=== PATIENT | female | born 1980 | race Caucasian/White ===

== ENCOUNTER 2019-08-31 16:41 | Outpatient (REF) | payer SELFPAY ==
[2019-09-04 14:40] LABS: COVID-19 RT-PCR Result Not Detected
== END 2019-08-31 17:01 ==
LOC: NCHCN 16:41
PROVIDERS: PCP Physician Assistant; Visit Provider Physician Assistant
DX: J06.9 Acute upper respiratory infection, unspecified (principal)
CPT/HCPCS: U0003

== ENCOUNTER 2019-12-23 09:00 | Outpatient (REF) | payer MEDICAID, SELFPAY ==
[2019-12-23 15:36] LABS: HCT 39.3 % (36.0-46.0); HGB 12.9 g/dL (12.0-15.5); Mean Corp. HGB Concentration 32.8 g/dL (32.0-36.0); Mean Corpuscular Volume 94.5 fL (80-95); Mean Platelet Volume 11.5 fL (8.0-11.0); Platelet Count 291 x1000/uL (130-400); RBC 4.16 m/cumm (4.00-5.20); RBC Distribution Width 13.2 % (11.7-14.6); White Blood Cell Count 7.49 k/cumm (4.4-10.8)
[2019-12-23 17:23] LABS: Anion Gap 10.5 mmol/L (3-11); BUN 6 mg/dL (7-18); CO2 24.5 mmol/L (21.0-32.0); CREATININE 0.81 mg/dL (0.55-1.02); Calcium 9.6 mg/dL (8.5-10.1); Calculated LDL 45 mg/dL (<100); Chloride 103 mmol/L (98-107); Cholesterol 122 mg/dL (<200); Glucose 86 mg/dL (74-106); HDL Cholesterol 43 mg/dL (40-60); Potassium 4.3 mmol/L (3.5-5.1); Sodium 138 mmol/L (136-145); Triglyceride 174 mg/dL (<150)
== END 2019-12-23 09:20 ==
LOC: NCHCN 09:00
PROVIDERS: PCP Physician Assistant; Visit Provider Physician Assistant
DX: I10 Essential (primary) hypertension (principal)
CPT/HCPCS: 80048; 80061; 85027

== ENCOUNTER 2020-02-07 14:27 | Outpatient (CLI) | payer MEDICAID, SELFPAY ==
--- NOTE | 2020-02-05 08:42 | DI.RAD_ITS ---
EXAM: XR KNEE RT 3V AP,LAT,GEO CLINICAL HISTORY: RT KNEE PAIN,CHRONIC,M25.561 TECHNIQUE: 2D digital imaging was performed. COMPARISON: No exams were available for comparison FINDINGS: There is hardware related to prior ACL repair. There is moderate to severe narrowing of the medial f emoral tibial joint and moderate periarticular spurring. There is mild spurring seen laterally and a t the pelvis patellofemoral joint. There are few bony density seen in the suprapatellar region which could represent small loose bodies versus other soft tissue calcification. 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 Question suprapatellar l oose bodies.
== END 2020-02-07 14:47 ==
PROVIDERS: PCP Physician Assistant; Visit Provider Physician Assistant
DX: M17.11 Unilateral primary osteoarthritis, right knee (principal); M76.9 Unspecified enthesopathy, lower limb, excluding foot
CPT/HCPCS: 73562

== ENCOUNTER 2020-04-28 15:01 | Outpatient (REF) | payer MEDICAID, SELFPAY ==
[2020-05-03 17:44] LABS: Patient Race White; SARS-CoV-2 RNA Undetected (Undetected); SARS-CoV-2 Specimen Source Nasal
== END 2020-04-28 15:21 ==
LOC: NCHCN 15:01
PROVIDERS: PCP Physician Assistant; Visit Provider Nurse Practitioner Family
DX: J06.9 Acute upper respiratory infection, unspecified (principal)
CPT/HCPCS: U0003

== ENCOUNTER 2020-05-05 14:25 | Outpatient (REF) | payer MEDICAID, SELFPAY ==
[2020-05-09 22:16] LABS: Patient Race White; SARS-CoV-2 RNA Undetected (Undetected); SARS-CoV-2 Specimen Source Nasal
== END 2020-05-05 14:45 ==
LOC: NCHCN 14:25
PROVIDERS: PCP Physician Assistant; Visit Provider Physician Assistant Medical
DX: J06.9 Acute upper respiratory infection, unspecified (principal)
CPT/HCPCS: U0003

== ENCOUNTER 2020-08-10 09:10 | Outpatient (REF) | payer MEDICAID, SELFPAY ==
[2020-08-10 16:05] LABS: HCT 35.8 % (36.0-46.0); MCH 31.8 pg (27.0-33.0); MCHC 33.5 % (32.0-36.0); MPV 12.2 fL (8.0-11.0); Platelet Count 306 10^3/uL (130-400); RBC 3.77 10^6/uL (3.93-5.22); RDW 12.8 % (11.7-14.6); RDW-SD 44.8 fL; WBC 5.63 10^3/uL (4.4-10.8)
[2020-08-10 16:11] LABS: Anion Gap 9.1 mmol/L (3-11); BUN 8 mg/dL (7-18); CO2 24.9 mmol/L (21.0-32.0); CREATININE 0.8 mg/dL (0.55-1.02); Calcium 8.8 mg/dL (8.5-10.1); Chloride 105 mmol/L (98-107); Glucose 126 mg/dL (74-106); Potassium 3.9 mmol/L (3.5-5.1); Sodium 139 mmol/L (136-145)
[2020-08-11 13:17] LABS: COVID-19 RT-PCR UVMMC Result Negative (Negative)
== END 2020-08-10 09:11 | disposition home or self-care (01) ==
LOC: NCHCN 09:10
PROVIDERS: PCP Physician Assistant; Visit Provider Physician Assistant
DX: Z20.822 Contact with and (suspected) exposure to COVID-19 (principal); R05 Cough; Z01.818 Encounter for other preprocedural examination
CPT/HCPCS: 80048; 85027; U0003

== ENCOUNTER 2020-10-25 02:29 | Outpatient (CLI) | payer MEDICAID, SELFPAY ==
--- NOTE | 2020-10-25 | DI.MAMMO_ITS ---
Exam(s) MAMMO SCREENING EXAM: MAMMO SCREENING CLINICAL HISTORY: SCREENING, Z12.31. TECHNIQUE: Bilateral full field digital CC and MLO mammographic images were obtained with 3D tomosyn thesis and utilizing computer aided detection (CAD). COMPARISON: Prior outside mammogram performed January 2018 FINDINGS: The fibroglandular tissue pattern is moderately dense. In the right breast there is a lobulated noncalcified nodular density seen laterally the, similar to the previous study 2018. Perhaps minimally larger. On the present study this measures approximately 11 by 6 millimeters. Located 7 cm in from the nipple. In the left breast there is a nodular density noted lateral of center approximately 11 cm in from the nipple. This measures 6.5 by 4.5 cm. There is subtle suggestion of a 2nd possible nodular density more centrally located in the right [address], approximately 5-6 cm in from the nipple. IMPRESSION: Bilateral nodular densities. Spot compression views and bilateral breast ultrasound recommended BI-RADS Category 0 - Assessment Incomplete: Need additional imaging evaluation Breast Density - Category C - Heterogeneously dense Breast density Category C or D implies that the patient has dense breast tissue. Dense breast tissue can make it harder to find cancer on a mammogram. Dense breast tissue is also associated with an incr eased risk of breast cancer. This information about the result of the mammogram report was provided to the patient to raise their awareness. Use this report when you speak with the patient about their risks for breast cancer, which includes their family history. At that time, you may recommend additional screening tests (Ultrasoun d or MRI) as these tests may add significant information. A negative radiographic report should not delay biopsy if a dominant or clinically suspicious mass is present. Up to ten percent of cancers are not identified on mammography. A negative report may reinforce clinical impression. Adenosis and dense breasts may obscure an underlying neoplasm. False positive reports average 6 to 10%. Patient will receive a letter notifying them of these results.
== END 2020-10-25 02:49 ==
PROVIDERS: PCP Physician Assistant; Visit Provider Physician Assistant
DX: Z12.31 Encounter for screening mammogram for malignant neoplasm of breast (principal); R92.8 Other abnormal and inconclusive findings on diagnostic imaging of breast
CPT/HCPCS: 77063; 77067

== ENCOUNTER 2020-11-16 02:30 | Outpatient (CLI) | payer MEDICAID, SELFPAY ==
--- NOTE | 2020-11-16 | DI.US_ITS ---
Exam(s) US BREAST RT LIMITED US BREAST LT LIMITED MG MAMMO SCREEN CALL BACK BI EXAM: MG MAMMO SCREEN CALL BACK BI and bilateral ultrasound limited CLINICAL HISTORY: F/U MAMMO, RT BREAST NODULAR DENSITY, LT BREAST NODULAR DENSITY. TECHNIQUE: Craniocaudal and mediolateral oblique Full Field Digital Mammography views of the bilater al breast with Computer Aided Diagnosis followed by Tomosynthesis and bilateral breast ultrasound. COMPARISON: Priors available for comparison. FINDINGS: Mammography/Tomosynthesis: Masses/Architectural Distortion: There is again seen a well-circumscribed, 4 mm nodule in the posteri or outer left breast on the craniocaudad view. This area was not included on the prior mammographic examination. The area of asymmetry in the central right breast does not persist on the additional vi ew. Microcalcifictions: No suspicious pleomorphic-type are seen. Skin Thickening/Nipple Retraction: None. Bilateral limited breast US: Echotexture: Normal appearance of the glandular tissue. Shadowing: No suspicious foci. Cyst: None. Solid lesions: None seen. Ductal dilation: None. IMPRESSION: 1. No evidence of malignancy is noted. 2. Re-evaluation of both breasts in 6 months is recommended with bilateral mammograms. 3. The findings were discussed with the patient on the date of the examination. BI-RADS Category 3 - 6 month - Probably Benign Finding: Recommend follow-up imaging in 6 months Breast Density - Category C - Heterogeneously dense Breast density Category C or D implies that the patient has dense breast tissue. Dense breast tissue can make it harder to find cancer on a mammogram. Dense breast tissue is also associated with an incr eased risk of breast cancer. This information about the result of the mammogram report was provided to the patient to raise their awareness. Use this report when you speak with the patient about their risks for breast cancer, which includes their family history. At that time, you may recommend additional screening tests (Ultrasoun d or MRI) as these tests may add significant information. A negative radiographic report should not delay biopsy if a dominant or clinically suspicious mass is present. Up to ten percent of cancers are not identified on mammography. A negative report may reinforce clinical impression. Adenosis and dense breasts may obscure an underlying neoplasm. False positive reports average 6 to 10%. Patient will receive a letter notifying them of these results.
== END 2020-11-16 02:50 ==
PROVIDERS: PCP Physician Assistant; Visit Provider Physician Assistant
DX: Z12.31 Encounter for screening mammogram for malignant neoplasm of breast (principal); R92.8 Other abnormal and inconclusive findings on diagnostic imaging of breast; N60.82 Other benign mammary dysplasias of left breast; N64.59 Other signs and symptoms in breast
CPT/HCPCS: 76642; 77063; 77067

== ENCOUNTER 2021-03-14 10:08 | Outpatient (REF) | payer OTHER, SELFPAY ==
--- NOTE | 2021-03-14 09:00 | PAPFT_PTH ---
PATIENT: Ginna Rodriguez LOC: [facility] U#:[id number] AGE/SX: 40/F ROOM: RE03/14/[address]: Pranay Fam : 1980 BED: DIS: 03/14/2021 SPEC #: [id number] RECD: 03/14/21 18:37 STATUS: BERTO REQ #: [id number] FELIPE: 03/14/21 09:[address]: Pranay Fam DEPT: [facility] Cytology RECD BY: Machelle Randle Tissues: 1 - CX/ENDOCX FOR PAP SMEARS Procedures: PAP THIN PREP/UVM Screening HPV DNA PROBE Comments: [id number]
== END 2021-03-14 10:09 | disposition home or self-care (01) ==
LOC: NCHCN 10:08
PROVIDERS: PCP Physician Assistant; Visit Provider Physician Assistant
DX: Z12.4 Encounter for screening for malignant neoplasm of cervix (principal); Z11.51 Encounter for screening for human papillomavirus (HPV)
CPT/HCPCS: 88142; 87624

== ENCOUNTER → 2021-09-21 01:17 | Outpatient (CLI) | payer OTHER, SELFPAY ==
--- NOTE | 2021-09-21 09:30 | DI.MAMMO_ITS ---
Exam(s) MAMMO DIAGNOSTIC BI EXAM: MAMMO DIAGNOSTIC BI CLINICAL HISTORY: H/O ABNL MAMMO, Z87.898 TECHNIQUE: Bilateral full field digital CC and MLO mammographic images were obtained with 3D tomosyn thesis and utilizing computer aided detection (CAD). COMPARISON: Available for comparison. FINDINGS: Masses/Architectural Distortion: The nodule in the outer left breast on the CC view is stable. Microcalcifications: No suspicious pleomorphic-type are seen. Skin Thickening/Nipple Retraction: None. IMPRESSION: 1. No significant interval change with no specific features of malignancy noted. 2. Unless there is more urgent need, screening mammography is recommended, as per [employer] [employer] guidelines. The patient should return in 6 months for screening mammography. 3. Findings were discussed with the patient on the date of the examination. BI-RADS Category 1 - Negative Breast Density - Category C - Heterogeneously dense Breast density category C or D implies that the patient has dense breast tissue. Dense breast tissue is very common and is not abnormal but dense breast tissue can make it harder to find cancer on a ma mmogram. Also, dense breast tissue may increase their breast cancer risk. This information about the result of the mammogram report was provided to the patient to raise their awareness. Use this report when you speak with the patient about their risks for breast cancer, which includes their family hist ory. At that time, you may recommend for more screening tests (Ultrasound or MRI) as they might be us eful based on their risk. A negative radiographic report should not delay biopsy if a dominant or clinically suspicious mass is present. Up to ten percent of cancers are not identified on mammography. A negative report may reinforce clinical impression. Adenosis and dense breasts may obscure an underlying neoplasm. False positive reports average 6 to 10%. Patient will receive a letter notifying them of these results.
== END ==
PROVIDERS: PCP Physician Assistant; Visit Provider Physician Assistant
DX: R92.8 Other abnormal and inconclusive findings on diagnostic imaging of breast (principal); N60.82 Other benign mammary dysplasias of left breast
CPT/HCPCS: 77062; 77066; G0279

== ENCOUNTER 2022-09-20 12:45 | Outpatient (REF) | payer OTHER, MEDICAID, SELFPAY ==
[2022-09-21 13:29] LABS: Hemoglobin A1C 5.7 % (<5.7)
[2022-09-21 13:53] LABS: Vitamin D 25 Total 54.4 ng/mL (30-100)
[2022-09-21 13:57] LABS: ALT 35 U/L (14-59); AST 19 U/L (15-37); Albumin 3.7 g/dL (3.4-5.0); Alkaline Phosphatase 110 U/L (46-116); Anion Gap 6.6 mmol/L (3-11); BUN 7 mg/dL (7-18); Bilirubin, Total 0.3 mg/dL (0.2-1.0); CO2 29.4 mmol/L (21.0-32.0); Calcium 10.1 mg/dL (8.5-10.1); Chloride 104 mmol/L (98-107); Estimated GFR 71.69 (mL/min/1.73m2); Glucose 82 mg/dL (74-106); Potassium 4.4 mmol/L (3.5-5.1); Sodium 140 mmol/L (136-145); TSH (W/Ref FT4) 0.87 uIU/mL (0.36-3.74); Total Protein 7.7 g/dL (6.4-8.2); Vitamin B12 591 pg/mL (193-986)
== END 2022-09-20 12:46 | disposition home or self-care (01) ==
LOC: NCHCN 12:45
PROVIDERS: PCP Physician Assistant; Visit Provider Registered Nurse
DX: F32.A Depression, unspecified (principal)
CPT/HCPCS: 80053; 82306; 82607; 83036; 84443; 85025

== ENCOUNTER → 2023-02-22 01:13 | Outpatient (CLI) | payer OTHER, SELFPAY ==
--- NOTE | 2023-02-22 15:19 | DI.MAMMO_ITS ---
Exam(s) MAMMO SCREENING EXAM: MAMMO SCREENING CLINICAL HISTORY: SCREENING MAMMO Z12.31 TECHNIQUE: Bilateral full field digital CC and MLO mammographic images were obtained with 3D tomosyn thesis and utilizing computer aided detection (CAD). COMPARISON: Available for comparison. FINDINGS: Masses/Architectural Distortion: None seen. Stable area of asymmetry in the upper left breast on the MLO view compared to prior examination. No new areas of breast asymmetry or nodularity are seen. Th e nodule in the posterior medial right breast is unchanged as is a nodule in the outer left breast. Microcalcifications: No suspicious pleomorphic-type are seen. Skin Thickening/Nipple Retraction: None. IMPRESSION: 1. No significant interval change with no specific features of malignancy noted. 2. Unless there is more urgent need, screening mammography is recommended, as per [employer] guidelines. BI-RADS Category 2 - Benign Findings Breast Density - Category C - Heterogeneously dense Breast density category C or D implies that the patient has dense breast tissue. Dense breast tissue is very common and is not abnormal but dense breast tissue can make it harder to find cancer on a ma mmogram. Also, dense breast tissue may increase their breast cancer risk. This information about the result of the mammogram report was provided to the patient to raise their awareness. Use this report when you speak with the patient about their risks for breast cancer, which includes their family hist ory. At that time, you may recommend for more screening tests (Ultrasound or MRI) as they might be us eful based on their risk. A negative radiographic report should not delay biopsy if a dominant or clinically suspicious mass is present. Up to ten percent of cancers are not identified on mammography. A negative report may reinforce clinical impression. Adenosis and dense breasts may obscure an underlying neoplasm. False positive reports average 6 to 10%. Patient will receive a letter notifying them of these results.
== END ==
PROVIDERS: PCP Physician Assistant; Visit Provider Physician Assistant
DX: Z12.31 Encounter for screening mammogram for malignant neoplasm of breast (principal)
CPT/HCPCS: 77063; 77067

== ENCOUNTER 2023-05-15 11:10 | Outpatient (REF) | payer OTHER, SELFPAY ==
[2023-05-15 15:39] LABS: HCT 36.5 % (36.0-46.0); HGB 12.6 g/dL (11.2-15.7); MCH 32.9 pg (27.0-33.0); MCHC 34.5 % (32.0-36.0); MCV 95 fL (80-95); MPV 11.8 fL (8.0-11.0); Platelet Count 297 10^3/uL (130-400); RBC 3.83 10^6/uL (3.93-5.22); RDW 13.7 % (11.7-14.6); RDW-SD 47.5 fL; WBC 6.34 10^3/uL (4.4-10.8)
[2023-05-15 16:02] LABS: Anion Gap 10.4 mmol/L (3-11); BUN 4 mg/dL (7-18); CO2 25.6 mmol/L (21.0-32.0); CREATININE 0.7 mg/dL (0.55-1.02); Calcium 9.4 mg/dL (8.5-10.1); Chloride 102 mmol/L (98-107); FREE T4 0.98 ng/dL (0.76-1.46); Glucose 98 mg/dL (74-106); Potassium 3.8 mmol/L (3.5-5.1); Sodium 138 mmol/L (136-145); TSH 1.96 uIU/mL (0.36-3.74)
== END 2023-05-15 11:11 | disposition home or self-care (01) ==
LOC: NCHCN 11:10
PROVIDERS: PCP Physician Assistant; Visit Provider Physician Assistant
DX: E55.9 Vitamin D deficiency, unspecified (principal); R53.83 Other fatigue; I10 Essential (primary) hypertension
CPT/HCPCS: 80048; 82306; 85027; 84439; 84443

== ENCOUNTER 2023-09-02 18:32 | Outpatient (REF) | payer OTHER, SELFPAY ==
[2023-09-02 18:36] LABS: HCT 36.6 % (36.0-46.0); HGB 12.2 g/dL (11.2-15.7); MCH 32.6 pg (27.0-33.0); MCHC 33.3 % (32.0-36.0); MCV 98 fL (80-95); MPV 11.7 fL (8.0-11.0); Platelet Count 327 10^3/uL (130-400); RBC 3.74 10^6/uL (3.93-5.22); RDW 13.1 % (11.7-14.6); RDW-SD 46.3 fL; WBC 5.89 10^3/uL (4.4-10.8)
[2023-09-02 19:27] LABS: ALT 65 U/L (14-59); AST 38 U/L (15-37); Albumin 3.7 g/dL (3.4-5.0); Alkaline Phosphatase 93 U/L (46-116); Anion Gap 11.1 mmol/L (3-11); BUN 11 mg/dL (7-18); Bilirubin, Total 0.3 mg/dL (0.2-1.0); CO2 24.9 mmol/L (21.0-32.0); CREATININE 0.8 mg/dL (0.55-1.02); Calcium 9.4 mg/dL (8.5-10.1); Chloride 102 mmol/L (98-107); Estimated GFR 93.12 (mL/min/1.73m2); Glucose 151 mg/dL (74-106); Potassium 3.8 mmol/L (3.5-5.1); Sodium 138 mmol/L (136-145); TSH 0.66 uIU/Ml (0.36-3.74); Total Protein 7.2 g/dL (6.4-8.2)
== END 2023-09-02 18:33 | disposition home or self-care (01) ==
LOC: NCHCN 18:32
PROVIDERS: PCP Physician Assistant; Visit Provider Physician Assistant
DX: Z01.818 Encounter for other preprocedural examination (principal)
CPT/HCPCS: 80053; 85027; 84443

== ENCOUNTER 2023-12-02 11:30 | Emergency (ER) | payer MEDICAID, SELFPAY ==
[2023-12-02 11:34] VITALS: BP 150/97; PULSE 68; RESP 18; O2SAT 99
--- NOTE | 2023-12-02 11:42 | ED.GENADUL_ITS ---
Discharge Plan Disposition Patient Disposition: Home Condition: Stable Discharge Details Clinical Impression: Sprain of right wrist Primary Care Provider: Pranay Fam ED Provider: Sixto Mary Home Meds and New Rx's Prescriptions: Continued amlodipine 5 mg tablet 5 mg PO DAILY Patient Comments: TAKE 1 TABLET BY MOUTH ONCE DAILY bisoprolol fumarate 10 mg tablet 10 mg PO DAILY Patient Comments: TAKE 1 TABLET BY MOUTH ONCE DAILY albuterol sulfate [Ventolin HFA] 90 mcg/actuation HFA aerosol inhaler 2 inh INHALATION PRN PRN (Reason: cough variant asthma) Patient Comments: as needed hydrochlorothiazide 12.5 mg tablet 12.5 mg PO DAILY Trintellix 20 mg tablet 20 mg PO DAILY Patient Comments: TAKE 1 TABLET BY MOUTH ONCE DAILY IN THE MORNING FOR DEPRESSION FOR 30 DAYS Vraylar 1.5 mg capsule 1.5 mg PO QHS Patient Comments: TAKE 1 CAPSULE BY MOUTH ONCE DAILY AT BEDTIME FOR 30 DAYS FOR MOOD Discharge Instructions Instructions: Wrist Sprain ED Additional Instructions: You were seen in the emergency department for your sprain of your right wrist. There is no fracture seen on any of your x-rays. Please use the provided wrist brace to immobilize for symptomatic relief. Please rest, ice, compress and elevate the wrist often over the next few days. Please use therapeutic dosing of Tylenol (acetamenophen) & Advil (ibuprofen) in an alternating fashion as follows: Take 1000mg of Tylenol every 6 hours without missing doses- that is 4 times per day. [place] in between the Tylenol dosings, take 400-600mg of Advil also on a 6 hour schedule, that is also 4 times per day. The daily maximum dosing of Tylenol is 4000mg, and the daily maximum dosing of Advil is 2400mg. This is safe to do for weeks. Please note that some common cold medications & prescription pain medications may contain acetamenophen and you need to read OTC drug labels and factor that in to maximum daily dosings. Please return to the emergency department for signs of neurovascular compromise, please follow-up with orthopedics for persistent pain lasting longer than 2 weeks. Referrals: [facility] [Provider Group] Pranay Fam [Primary Care Provider] - Discharge Data Discharge Date/Time-TO BE ENTERED AT DEPARTURE: 12/02/23 12:33 HPI General Date/Time Provider Initiated Documentation: 12/02/23 11:39 . HPI Narrative: 43 year-old female presents to ED today by POV/ambulating with a chief complaint of fall on a dock yesterday. Quality described as R hand and wrist pain- R-hand dominant, no radiation to numbness, does endorse reduced ROM, denies focal bony/sharp pain, denies other proximal forearm injury, denies skin changes/deformity/gross swelling. Severity is described as moderate. Palliating factors include nothing specific attempted. Provoking factors include nothing specific. Patient not anticoagulated. Related Data Home Medications Medication Instructions Recorded Confirmed albuterol sulfate 90 mcg/actuation 2 inh inhalation PRN PRN cough 12/02/23 12/02/23 aerosol inhaler (Ventolin HFA) variant asthma amlodipine 5 mg tablet 5 mg PO DAILY 12/02/23 12/02/23 bisoprolol fumarate 10 mg tablet 10 mg PO DAILY 12/02/23 12/02/23 cariprazine 1.5 mg capsule 1.5 mg PO QHS 12/02/23 12/02/23 (Vraylar) hydrochlorothiazide 12.5 mg tablet 12.5 mg PO DAILY Hypertension 12/02/23 12/02/23 vortioxetine 20 mg tablet 20 mg PO DAILY 12/02/23 12/02/23 (Trintellix) Allergies Allergy/AdvReac Type Severity Reaction Status Date / Time adhesive Allergy Mild Skin Rash Verified 12/02/23 11:51 nitrofurantoin AdvReac Severe Other (See Verified 12/02/23 11:51 [From Macrobid] Comment) meperidine [From Demerol] AdvReac Unknown Other (See Verified 12/02/23 11:51 Comment) Sulfa Drugs AdvReac Intermediate Other (See Uncoded 12/02/23 11:51 Comment) General Stated Complaint: Orthopedic BRENDAN: 4 Review of Systems All systems reviewed & are unremarkable except as noted in HPI and below Exam Narrative Exam Narrative: GENERAL APPEARANCE: Well-nourished, non-toxic, awake and alert, atraumatic, no acute distress. SKIN: Warm, pink, dry, intact, without rashes/lesions/ulcerations. HEAD: Normocephalic, atraumatic, normal hair distribution for gender/age. EYES: Pupils PERRLA, EOMs intact without nystagmus, normal conjunctiva, no exudates on lids/lashes. ENT: Nares patent, no circumoral cyanosis, no facial swelling NECK: Supple, trachea midline, painless cervical ROM. LUNGS/CHEST: Non-labored respirations, normal A/P diameter, symmetrical expansion, no chest wall deformity HEART (CV/PV): Regular rate, no peripheral edema, no JVD. ABDOMEN: Soft, non-distended, no guarding. MSK: Normal ROM, no swelling/deformity to bilateral UEs or LEs, moving all extremities without weakness, no cyanosis, spine midline without tenderness, normal curvature. R HAND: No focal crepitus, diffuse tenderness to the wrist and carpal bones, no ecchymosis, no gross swelling, no deformity, right radial pulse 2+, sensation intact, brisk capillary refill, negative anatomical snuff box tenderness. NEURO: Mental Status AAOx4 - alert to person, place, time, events No facial droop, no forehead involvement. Motor: No focal weakness - strength 5/5 in bilateral UEs and LEs, proximal and distal, symmetric. Sensory: sensation intact to light touch globally. Gait normal: patient ambulated without ataxia into ED room. PSYCH: euthymic, cooperative, pleasant, appropriate speech Course Vital Signs Vital signs: Vital Signs Pulse 68 12/02/23 11:34 Respiratory Rate 18 12/02/23 11:34 Blood Pressure 150/97 H 12/02/23 11:34 Pulse Oximetry 99 12/02/23 11:34 Pulse 68 12/02/23 11:34 Respiratory Rate 18 12/02/23 11:34 Respiratory Effort Normal, Non-Labored 12/02/23 11:38 Blood Pressure 150/97 H 12/02/23 11:34 Blood Pressure Position Sitting 12/02/23 11:34 Pulse Oximetry 99 12/02/23 11:34 Oxygen Delivery Method Room Air 12/02/23 11:34 Oxygen Flow Rate 0 12/02/23 11:34 Medical Decision Making This dictation utilizes [id number] dictation software and may contain unedite d grammatical errors. 43 year-old female presents to ED today by POV/ambulating with a chief complaint of fall on a dock yesterday. Quality described as R hand and wrist pain- R-hand dominant, no radiation to numbness, does endorse reduced ROM, denies focal bony/sharp pain, denies other proximal forearm injury, denies skin changes/deformity/gross swelling. Severity is described as moderate. Palliating factors include nothing specific attempted. Provoking factors include nothing specific. Patients' medical history: noncontributory. Family and social history: noncontributory. Pertinent exam findings / vital signs include R HAND: No focal crepitus, diffuse tenderness to the wrist and carpal bones, no ecchymosis, no gross swelling, no deformity, right radial pulse 2+, sensation intact, brisk capillary refill, negative anatomical snuff box tenderness. Differential / pathologies of concern include fracture, sprain/strain. Diagnostic studies of: -XR R Hand, XR R Wrist - no acute fracture seen. Interventions of: -wrist brace. ED Course/Assessment/Plan: 43-year-old female presents with low sprain of the right wrist from falling on a dock yesterday. There is no acute deformity or gross swelling or bruising. X- rays are unremarkable. She is neurovascularly intact I did provide a wrist brace and counseled on RICE therapy and therapeutic dosing of Tylenol and ibuprofen. I recommend she return to the ER for signs of neurovascular compromise like complete numbness, redness or change in the swelling despite treatment. Follow-up with orthopedics if pain persists longer than 2 weeks. Findings not consistent with fracture, neurovascular compromise. Disposition of Sprain of Right Wrist. Patient verbalized understanding of the plan and return to ED criteria and engaged in shared decision making. Medical Records Medical records reviewed: Yes I reviewed the patient's medical records. Imaging Data Radiologic Study: Attestation: I personally reviewed and interpreted this imaging study as follows: Imaging: X-Ray Radiologist's impression: EXAM: XR WRIST RT COMPL NAVICULAR CLINICAL HISTORY: R wrist and hand pain. TECHNIQUE: 2D digital imaging was performed. Four views of the wrist. Three views of the hand.. COMPARISON: CR XR HAND RT COMPLETE from 12/02/2023 FINDINGS: BONES: No acute fracture is present. No bony destructive lesion is seen. JOINTS: The carpal bones are normally aligned. SOFT TISSUE: Normal. IMPRESSION: Unremarkable radiographs of the right wrist and hand. Quality:SDOH Health Related Social Needs: No Data to Display PFSH All Active Problems (Updated 12/02/23 @ 12:12 by WARREN Story) Sprain of right wrist (Acute) Social History Smoking/Tobacco Use Status: Never Smoking risk assessment performed?: Yes Alcohol Intake: never Drug use: Never Substance use type: does not use Do you feel safe at home: Yes Do you feel safe in your relationship?: Yes
--- NOTE | 2023-12-02 12:06 | DI.RAD_ITS ---
Exam(s) XR HAND RT COMPLETE XR WRIST RT COMPL NAVICULAR EXAM: XR WRIST RT COMPL NAVICULAR CLINICAL HISTORY: R wrist and hand pain. TECHNIQUE: 2D digital imaging was performed. Four views of the wrist. Three views of the hand.. COMPARISON: CR XR HAND RT COMPLETE from 12/02/2023 FINDINGS: BONES: No acute fracture is present. No bony destructive lesion is seen. JOINTS: The carpal bones are normally aligned. SOFT TISSUE: Normal. IMPRESSION: Unremarkable radiographs of the right wrist and hand. DATA REPOSITORY: RADIATION DOSE DELIVERED:
== END 2023-12-02 12:33 | disposition home or self-care (01) ==
LOC: ER 12:36
PROVIDERS: Emergency Provider Physician Assistant; PCP Physician Assistant
DX: S63.501A Unspecified sprain of right wrist, initial encounter (principal); W18.39XA Other fall on same level, initial encounter; Y93.01 Activity, walking, marching and hiking; Y92.89 Other specified places as the place of occurrence of the external cause
CPT/HCPCS: 99283; 73110; 73130

== ENCOUNTER → 2024-01-23 01:26 | Outpatient (CLI) | payer MEDICAID, SELFPAY ==
--- NOTE | 2024-01-23 10:16 | DI.US_ITS ---
Exam(s) US PELVIS TRANSVAGINAL EXAM: US PELVIS TRANSVAGINAL CLINICAL HISTORY: Check endometrial stripe, heavy menstrual bleeding, N92.0 TECHNIQUE: Transabdominal and transvaginal imaging was performed using standard protocol. COMPARISON: No exams were available for comparison FINDINGS: The bladder is unremarkable. UTERUS: Anteverted. 8.8 x 5.0 x 6.3 cm Endometrium: 12 mm. No focal abnormality visible. Myometrium: 2.2 centimeter posterior myometrial fibroid. Question additional 3.4 fibroid near the fu ndus of the this is not optimally visualized in both planes. Cervix: Nabothian cysts. OVARIES: Right: Cyst or mass: Small follicles. Left: Cyst or mass: Dominant follicle measuring 2.1 cm. DOPPLER: Color: Symmetric and uniform flow to both ovaries. No hyperemia. CUL-DE-SAC: Free fluid: Trace amount of fluid in the cul-de-sac. IMPRESSION: 2.2 centimeter posterior myometrial fibroid. Endometrium measures 12 millimeters without focal abnor mality. Unremarkable bilateral ovaries. DATA REPOSITORY:
== END ==
PROVIDERS: PCP Physician Assistant; Visit Provider Obstetrics & Gynecology
DX: N92.0 Excessive and frequent menstruation with regular cycle (principal); D25.9 Leiomyoma of uterus, unspecified
CPT/HCPCS: 76830; 76856

== ENCOUNTER 2024-02-10 16:46 | Outpatient (CLI) | payer MEDICAID, SELFPAY ==
[2024-02-10 12:41] LABS: Abs Immature Grans 0.02 10^3/uL (0.0-0.06); Absolute Basophil Count 0.01 10^3/uL (0.0-0.2); Absolute Lymphocyte Count 2.43 10^3/uL (1.2-3.4); Absolute Monocyte Count 0.37 10^3/uL (0.1-0.8); Absolute Neutrophil Count 2.79 10^3/uL (1.2-6.7); Basophils % 0.2 %; Eosinophils % 3.4 %; HCT 38.2 % (36.0-46.0); Immature Grans % 0.3 %; Lymphocytes % 41.8 %; MCH 32.2 pg (27.0-33.0); MCV 95 fL (80-95); MPV 10.5 fL (8.0-11.0); Monocytes % 6.4 %; Neutrophils % 47.9 %; Platelet Count 310 10^3/uL (130-400); RBC 4.04 10^6/uL (3.93-5.22); RDW 12.4 % (11.7-14.6); RDW-SD 43.7 fL; WBC 5.82 10^3/uL (4.4-10.8)
== END 2024-02-10 16:47 | disposition home or self-care (01) ==
LOC: LBO 16:46
PROVIDERS: PCP Physician Assistant; Visit Provider Obstetrics & Gynecology
DX: Z01.818 Encounter for other preprocedural examination (principal)
CPT/HCPCS: 36415; 86850; 86900; 86901; 85025

== ENCOUNTER 2024-02-12 06:15 | Day surgery (SDC) | payer MEDICAID, SELFPAY ==
[2024-02-12] VITALS (11 sets, daily range): BP systolic 105–122; BP diastolic 71–84; PULSE 60–81; RESP 15–19; TEMP 36–36.6; O2SAT 97–100; BMI 31.5
[2024-02-12] MEDS: Lactated Ringers 1,000 ML 125 ML IV (06:51)
--- NOTE | 2024-02-12 07:17 | W.ANESPRE ---
General Info Date of Service Date Performed: 02/12/24 Height: 5 ft 7 in Weight: 91.399 kg Body Mass Index (BMI): 31.5 Surgical Procedure: Operation Date: 02/12/24 07:40 Proposed Procedure Side Surgeon p Dilation & Curettage with Hysteroscopy Nikki Warner DO Meds Allergies and Home Medications Allergies Allergy/AdvReac Type Severity Reaction Status Date / Time adhesive Allergy Mild Skin Rash Verified 02/12/24 06:22 nitrofurantoin (From AdvReac Severe Other (See Verified 02/12/24 06:22 Macrobid) Comment) meperidine (From Demerol) AdvReac Unknown Other (See Verified 02/12/24 06:22 Comment) Sulfa Drugs AdvReac Intermediate Other (See Uncoded 02/12/24 06:22 Comment) Home Medication ?Medication ?Instructions ?Recorded albuterol sulfate 90 mcg/actuation 2 inh inhalation PRN PRN cough 12/02/23 aerosol inhaler (Ventolin HFA) variant asthma amlodipine 5 mg tablet 5 mg PO DAILY 12/02/23 bisoprolol fumarate 10 mg tablet 10 mg PO DAILY 12/02/23 cariprazine 1.5 mg capsule 1.5 mg PO DAILY 12/02/23 (Vraylar) hydrochlorothiazide 12.5 mg tablet 12.5 mg PO DAILY Hypertension 12/02/23 vortioxetine 20 mg tablet 20 mg PO DAILY 12/02/23 (Trintellix) clonazepam 0.125 mg disintegrating 0.125 mg PO DAILY PRN 01/16/24 tablet diphenhydramine HCl 25 mg tablet 25 mg PO TID PRN 01/16/24 (Benadryl Allergy) epinephrine 0.3 mg/0.3 mL 0.3 mg IM ONCE 01/16/24 injection, auto-injector propranolol 20 mg tablet 20 mg PO BID PRN 01/16/24 lisdexamfetamine 20 mg capsule 40 mg PO QAM 01/23/24 (Vyvanse) cetirizine 10 mg tablet (Zyrtec) 10 mg DAILY allergies 02/12/24 Current Visit Medications: Current Medications Generic Name Dose Route Start Last Admin Trade Name Freq PRN Reason Stop Dose Admin Ringer's Solution 1,000 mls @ 125 mls/hr 02/12/24 06:00 02/12/24 06:51 IV 02/12/24 23:59 125 mls/hr INFUSION CAROLYN Administration IV Miscellaneous Supplies 1 each 02/12/24 06:00 Iv Access IV 02/12/24 23:59 DIRECTED CAROLYN Sodium Chloride 0 ml 02/12/24 06:00 Normal Saline Flush 10 Ml Syr IV 02/12/24 23:59 PRN PRN Sodium Chloride 0 ml 02/12/24 06:00 Normal Saline 10 Ml Vial IJ 02/12/24 23:59 DIRECTED PRN Sterile Water 0 ml 02/12/24 06:00 Water,Injection,Sterile 10 Ml Vial IJ 02/12/24 23:59 DIRECTED PRN PFSH Active Problems Active Problems: Problem Status Onset Code Thickened endometrium Acute R93.89 Heavy menstrual bleeding Acute N92.0 Medical History Medical History Encounter for Essure implantation ACL (anterior cruciate ligament) tear Migraine Inflammatory bowel disease High blood pressure Depression with anxiety Surgical History Surgical History Status post right knee replacement H/O wisdom tooth extraction Tobacco Smoking/Tobacco Use Status: Never Passive smoking exposure: Yes Second hand exposure: Yes Alcohol Alcohol Intake: never Substance Use Substance use: Never Substance use type: does not use Prental History History 1 Para 0 Hx # Term Pregnancies Multiple births Hx # Pregnancies Ectopic pregnancies AB induced Hx Number of Living Children AB spontaneous 1 Vital Signs and Lab Results Vital Signs Most Recent Vital Signs in EMR: Most Recent Vital Signs Temp Pulse Resp BP Pulse Ox 36.1 C L 67 17 107/71 97 02/12/24 06:30 02/12/24 06:30 02/12/24 06:30 02/12/24 06:30 02/12/24 06:30 Lab Results Blood Type / Crossmatch: Antibody Screen NEGATIVE 02/10/24 Complete Blood Count: White Blood Count 5.82 10^3/uL (4.4-10.8) 02/10/24 12:27 Red Blood Count 4.04 10^6/uL (3.93-5.22) 02/10/24 12:27 Hemoglobin 13.0 g/dL (11.2-15.7) 02/10/24 12:27 Hematocrit 38.2 % (36.0-46.0) 02/10/24 12:27 Platelet Count 310 10^3/uL (130-400) 02/10/24 12:27 Complete Metabolic Panel: No Data to Display Liver Function Panel: No Data to Display Coagulation Panel: No Data to Display Cardiac Panel: No Data to Display Arterial Blood Gas: No Data to Display Venous Blood Gas: No Data to Display Pancreas Panel: No Data to Display Thyroid Panel: No Data to Display Infectious Disease: No Data to Display Blood Cultures: No Data to Display Toxicology Panel: No Data to Display Panel: No Data to Display Anesthesia Assessment and Plan Anesthesia History Personal History: PONV and Delayed Emergence Family History: Other Exercise Tolerance Exercise Tolerance: Metabolic Equivalents>4 Pertinent Negatives Pertinent Negatives: No Symptoms of GERD Cardiac & Pulmonary Exam Cardiac Exam: Normal S1/S2 Heart Sounds Pulmonary Exam: Clear Bilateral Breath Sounds Implantable Cardiac Device Does patient have a Pacemaker or an ICD?: No Airway Exam Known Difficult Airway: No Mallampati Class: 2 Mouth Opening: Normal (> 3cm) Thyromental Distance: Greater than 3 cm Neck Range of Motion: Full ROM Neck Circumference: Normal Teeth Condition: Normal Dentition ASA Classification ASA Score: ASA 2 Emergency Case?: No NPO Status NPO Status: NPO Clears >2 hours, Solids >8 hours Status Status: Negative HCG Anesthesia Plan Resuscitation Status: Full Code Anesthesia Technique: General Anesthesia Airway Planned: LMA Monitors Used: Standard Monitors
--- NOTE | 2024-02-12 08:15 | ENDOMET_PTH ---
PATIENT: Ginna Rodriguez LOC: [facility] U#:[id number] AGE/SX: 43/F ROOM: RE02/12/[address]: Nikki Warner DO : 1980 BED: DIS: 02/12/2024 SPEC #: [id number] RECD: 02/12/24 12:53 STATUS: BERTO REQ #: [id number] FELIPE: 02/12/24 08:[address]: Nikki Warner DEPT: Surgical Specimen RECD BY: Machelle Randle ENTERED: 02/12/24 13:04 SP TYPE: Endomet OTHR DR: Pranay Fam Tissues: 1 - ENDOMETRIUM BX/CURRETTE 2 - ENDOCERVICAL BX/CURRETTE 3 - ENDOMETRIUM BX/CURRETTE Procedures: GROSS AND MICRO LEVEL 4 Comments: [id number]
--- NOTE | 2024-02-12 08:29 | ROE_ITS ---
Date of service: 02/12/24 Time of Service: 08:30 Operative Note Operative Note DATE OF PROCEDURE: 02/12/24 PRE-OP DIAGNOSIS: Thickened endometrium, heavy menstrual bleeding POST-OP DIAGNOSIS: same (With endometrial polyp) PROCEDURE: Hysteroscopy with dilation curettage, MyoSure removal of endometrial polyp SURGEON: Nikki Warner ANESTHESIA TYPE: General LMA/ETT Refer to Anesthesia Record ESTIMATED BLOOD LOSS: 5 PATHOLOGY: other (1. Endometrial polyp 2. Endocervical curettage 3. Endometrial curettage) COMPLICATIONS: None Patient was transported to: PACU Patient's condition: stable Indications: Heavy menstrual bleeding, thickened endometrium Findings: [place] endometrial cavity. Visualization of both tubal ostia. 3 mm endometrial polyp at the left endometrial sidewall fundal region. Polyp removed with MyoSure device. Procedure Description: Patient taken the operating suite with an IV running where she is placed in the supine position. Full informed consent had previously been obtained. She had an IV running. She had general anesthesia administered via LMA. She was prepped and draped in the usual sterile fashion and positioned in [facility]. A timeout was held and confirmed. Exam under anesthesia revealed a uterus that was midline and mobile. Speculum was inserted into the vaginal vault and a single-tooth tenaculum used to grasp the anterior lip of the cervix. Cervical os dilated easily to the point that a 5 mm hysteroscope could be passed without difficulty. With instillation of normal saline via the MyoSure device, the endometrial cavity was dilated and inspected. Both tubal ostia were visualized. The endometrial lining appeared flush, but smooth and regular. There is noted to be a 3 mm polyp at the left uterine sidewall, fundal region. At this point the MyoSure device was inserted and the polyp removed. Base was hemostatic. Total fluid deficit from hysteroscope portion of the procedure was 145 mL of normal saline. At this point, a fractional dilation and curettage was performed with gentle curettage of the endocervix, followed by the endometrium. Modest tissue was removed with both curettings. All 3 specimens were sent for pathologic examination. At this point single-tooth tenaculum was removed and the anterior lip of the cervix and puncture sites were noted to be hemostatic. Speculum was removed and the patient was returned to the dorsal supine position. She awoke from anesthesia without difficulty and was taken to the postanesthesia care unit in stable condition. Complications: None apparent Fluids: 400 cc of crystalloid per anesthesia, 145 cc of normal saline via hyst eroscope Pathology: 1. Endometrial polyp 2. Endocervical curettage 3. Endometrial curettage Findings: As above.
--- NOTE | 2024-02-12 10:02 | W.ANESPOSTOP ---
Postoperative Evaluation Date, Time and Location Date Performed: 02/12/24 Time Performed: 10:02 Patient Location: Day Surgery Unit Vital Signs Most Recent Imported Vital Signs: Most Recent Vital Signs Temp Pulse Resp BP Pulse Ox 36.0 C L 69 16 122/74 100 02/12/24 09:18 02/12/24 09:18 02/12/24 09:18 02/12/24 09:18 02/12/24 09:18 Pain Score Most Recent Pain Score: Most Recent Pain Score Pain Level 0 02/12/24 08:40 Assessment Mental Status: Awake (Alert & Oriented to Patient Baseline) Airway and Respiratory Function: Patent airway with normal (patient baseline) respiratory exam Cardiovascular Function: Hemodynamically Stable Hydration Status: Adequately Hydrated Nausea & Vomiting: No Nausea or Vomiting Pain: Pt. Denies Any Pain Peripheral Nerve Block: Patient did not receive a nerve block
== END 2024-02-12 09:46 | disposition home or self-care (01) ==
PROVIDERS: PCP Physician Assistant; Visit Provider Obstetrics & Gynecology
PROC: 0UDB8ZZ Extraction of Endometrium, Via Natural or Artificial Opening Endoscopic (ICD-10-PCS; CPT 58558; principal; 2024-02-12 07:30)
DX: N92.0 Excessive and frequent menstruation with regular cycle (principal); R93.89 Abnormal findings on diagnostic imaging of other specified body structures; N84.0 Polyp of corpus uteri; F41.8 Other specified anxiety disorders; G43.909 Migraine, unspecified, not intractable, without status migrainosus
CPT/HCPCS: 58558; 81025; 88305; J1100; J1885; J2001; J2250; J2405; J2704

== ENCOUNTER 2025-04-14 09:30 | Outpatient (REF) | payer BC, SELFPAY ==
[2025-04-14 15:52] LABS: ALT 21 U/L (14-59); AST 15 U/L (15-37); Albumin 3.3 g/dL (3.4-5.0); Alkaline Phosphatase 92 U/L (46-116); Anion Gap 9.0 mmol/L (3-11); BUN 6 mg/dL (7-18); Bilirubin, Total 0.3 mg/dL (0.2-1.0); CO2 28.0 mmol/L (21.0-32.0); Calcium 9.1 mg/dL (8.5-10.1); Calculated LDL 25 mg/dL (<100); Chloride 102 mmol/L (98-107); Cholesterol 100 mg/dL (<200); Estimated GFR 107.95 (mL/min/1.73m2); Glucose 108 mg/dL (74-106); HDL Cholesterol 31 mg/dL (>or=50); Potassium 4.0 mmol/L (3.5-5.1); Sodium 139 mmol/L (136-145); Total Protein 6.9 g/dL (6.4-8.2); Triglyceride 220 mg/dL (<150)
[2025-04-14 16:01] LABS: Hemoglobin A1C 5.9 % (<5.7)
== END 2025-04-14 09:31 | disposition home or self-care (01) ==
LOC: NCHCN 09:30
PROVIDERS: PCP Physician Assistant; Visit Provider Physician Assistant
DX: Z13.1 Encounter for screening for diabetes mellitus (principal); I10 Essential (primary) hypertension
CPT/HCPCS: 80053; 80061; 83036

== ENCOUNTER → 2025-05-25 00:31 | Outpatient (CLI) | payer BC, SELFPAY ==
--- NOTE | 2025-05-25 | DI.MAMMO_ITS ---
Exam(s) MAMMO SCREENING EXAM: MAMMO SCREENING CLINICAL HISTORY: Z12.31 Screening TECHNIQUE: Mammograms were interpreted according to the usual protocol including computer analysis with CAD system, tomosynthesis and C-view imaging. COMPARISON: 2017 through 2022 FINDINGS: The breasts are composed of heterogeneously dense fibroglandular densities, Breast Density category C. No suspicious masses or suspicious microcalcifications are seen. No skin thickening or abnormal axillary lymph nodes are seen. There has been no significant change from prior exams. IMPRESSION: BI-RADS Category 1, Negative mammogram. Yearly screening mammography is recommended. Breast Density: Category C - The breasts are heterogeneously dense, which may obscure small masses. Breast density Category C or D implies that the patient has dense breast tissue. Dense breast tissue can make it harder to find cancer on a mammogram. Dense breast tissue is also associated with an increased risk of breast cancer. This information about the result of the mammogram report was provided to the patient to raise their awareness. Use this report when you speak with the patient about their risks for breast cancer, which includes their family history. At that time, you may recommend additional screening tests (Ultrasound or MRI) as these tests may add significant information. A negative radiographic report should not delay biopsy if a dominant or clinically suspicious mass is present. Up to ten percent of cancers are not identified on mammography. A negative report may reinforce clinical impression. Adenosis and dense breasts may obscure an underlying neoplasm. False positive reports average 6 to 10%.
== END ==
PROVIDERS: PCP Physician Assistant; Visit Provider Physician Assistant
DX: Z12.31 Encounter for screening mammogram for malignant neoplasm of breast (principal); R92.333 Mammographic heterogeneous density, bilateral breasts
CPT/HCPCS: 77063; 77067

== ENCOUNTER 2025-05-25 10:54 | Outpatient (CLI) | payer BC, SELFPAY ==
[2025-05-25 09:04] LABS: TSH 1.05 uIU/mL (0.55-4.78); Vitamin D 25 Total 38 ng/mL (30-100)
[2025-05-25 09:05] LABS: Vitamin B12 296 pg/mL (211-911)
== END 2025-05-25 10:55 | disposition home or self-care (01) ==
LOC: LBO 10:54
PROVIDERS: PCP Physician Assistant; Visit Provider Nurse Practitioner Psychiatric/Mental Health
DX: F32.A Depression, unspecified (principal)
CPT/HCPCS: 36415; 82306; 82607; 84443